=== PATIENT | male | born 1955 | race African-American/Black ===

== ENCOUNTER 2019-08-17 21:29 | Inpatient (IN) | payer OTHER ==
[~2019-08-17] VITALS: Ht 177.8 cm; Wt 88.0 kg
[2019-08-17] MEDS ORDERED: MAGNESIUM/ALUMINUM HYDROXIDE/SIMETHICONE 30ML UDC PO ONE (23:00)
[2019-08-17] MEDS ORDERED: NITROGLYCERIN 0.4MG TABLET SL SL PRN (23:00)
[2019-08-17] MEDS ORDERED: ASPIRIN 81MG TABLET PO ONE (23:00)
[2019-08-17] MEDS ORDERED: VISCOUS LIDOCAINE 2% 15 ML UDC PO ONE (23:00)
[2019-08-17 23:08] LABS: EOSINOPHILS % 1.4 % (0.0-5.0); HEMATOCRIT. 33.8 % (42.0-52.0); HEMOGLOBIN. 11.5 g/dL (14.0-18.0); LYMPHOCYTES % 29.8 % (20.0-50.0); MEAN CORPUSCULAR HEMOGLOBIN 29.4 pg (28.0-32.0); MEAN CORPUSCULAR VOLUME 86.8 fL (80.0-94.0); MEAN PLATELET VOLUME 7.1 fl (7.4-10.4); MONOCYTES % 8.3 % (2.0-8.0); NEUTROPHILS % 59.5 % (40.0-76.0); PLATELET 248 x1000/uL (130-400); RED CELL DISTRIBUTION WIDTH 14.3 % (11.6-14.6)
[2019-08-17 23:13] LABS: CHLORIDE 100 mEq/L (98-107)
[2019-08-18] VITALS (11 sets, daily range): BP systolic 112–144; BP diastolic 64–87
[2019-08-18] MEDS ORDERED: HYDR-3281 PO (03:05)
[2019-08-18] MEDS ORDERED: ASPI-986 MT (03:05)
[2019-08-18] MEDS ORDERED: NAPR220C61 MT (03:05)
[2019-08-18] MEDS ORDERED: BACL20TA PO (03:05)
[2019-08-18] MEDS: HYDROCODONE/ACETAMINOPHEN 5/325MG TABLET PO PRN (04:25)
[2019-08-18] MEDS: MORPHINE SULFATE 2 MG/ML CPJ (NOT FOR IM USE) IV PRN (06:05)
[2019-08-18] MEDS: ASPIRIN 81MG TABLET PO SCH (08:25)
[2019-08-18 09:16] LABS: BASOPHILS % 0.6 % (0.0-2.0); EOSINOPHILS % 1.7 % (0.0-5.0); HEMATOCRIT. 35.3 % (42.0-52.0); HEMOGLOBIN. 11.7 g/dL (14.0-18.0); LYMPHOCYTES % 29.8 % (20.0-50.0); MEAN CORPUSCULAR HEMOGLOBIN 29.1 pg (28.0-32.0); MEAN CORPUSCULAR VOLUME 87.6 fL (80.0-94.0); MEAN PLATELET VOLUME 7.2 fl (7.4-10.4); MONOCYTES % 5.7 % (2.0-8.0); NEUTROPHILS % 62.2 % (40.0-76.0); PLATELET 248 x1000/uL (130-400); RED BLOOD CELL COUNT 4.03 mill/uL (4.7-6.1); RED CELL DISTRIBUTION WIDTH 14.1 % (11.6-14.6)
[2019-08-18 09:20] LABS: CHLORIDE 98 mEq/L (98-107)
[2019-08-18 09:27] LABS: LDL CHOLESTEROL 74 mg/dL (5-100)
[2019-08-18 09:28] LABS: HDL CHOLESTEROL 64 mg/dL (40-59)
[2019-08-18 09:31] LABS: CREATINE KINASE MB FRACTION < 1.0 ng/mL (0.5-3.6)
[2019-08-18] MEDS ORDERED: IPRATROPIUM/ALBUTEROL 0.5-3(2.5)MG/3ML NEB HHN PRN (11:45)
[2019-08-18] MEDS ORDERED: LORAZEPAM 0.5MG TABLET PO PRN (11:45)
[2019-08-18] MEDS ORDERED: ONDANSETRON HCL 4MG/2ML INJ IV PRN (11:45)
[2019-08-18] MEDS ORDERED: DOCUSATE SODIUM 100MG CAPSULE PO PRN (11:45)
[2019-08-18] MEDS ORDERED: GUAIFENESIN 200MG/10ML SUGAR FREE UDC PO PRN (11:45)
[2019-08-18 12:26] LABS: *AMPHETAMINES SCREEN URINE NEGATIVE (NEGATIVE); *BARBITURATES SCREEN URINE NEGATIVE (NEGATIVE); *BENZODIAZEPINES SCREEN URINE NEGATIVE (NEGATIVE); *COCAINE SCREEN URINE NEGATIVE (NEGATIVE)
[2019-08-18 12:27] LABS: CANNABINOID URINE SCREEN NEGATIVE (NEGATIVE); METHADONE URINE SCREEN NEGATIVE (NEGATIVE); OPIATES URINE SCREEN PRESUMTIVE POSITIVE (NEGATIVE); PHENCYCLIDINE URINE SCREEN NEGATIVE (NEGATIVE)
[2019-08-18] MEDS ORDERED: BACLOFEN 10MG TABLET PO PRN (12:45)
[2019-08-19] VITALS (11 sets, daily range): BP systolic 96–139; BP diastolic 63–84
[2019-08-19] MEDS: MORPHINE SULFATE 2 MG/ML CPJ (NOT FOR IM USE) IV PRN ×2 (05:17→23:26)
[2019-08-19 08:16] LABS: BASOPHILS % 0.5 % (0.0-2.0); EOSINOPHILS % 1.4 % (0.0-5.0); HEMATOCRIT. 35.3 % (42.0-52.0); LYMPHOCYTES % 23.4 % (20.0-50.0); MEAN CORPUSCULAR HEMOGLOBIN 29.5 pg (28.0-32.0); MEAN PLATELET VOLUME 7.6 fl (7.4-10.4); MONOCYTES % 8.7 % (2.0-8.0); PLATELET 243 x1000/uL (130-400); RED BLOOD CELL COUNT 4.05 mill/uL (4.7-6.1); RED CELL DISTRIBUTION WIDTH 14.1 % (11.6-14.6)
[2019-08-19] MEDS: ASPIRIN 81MG TABLET PO SCH (08:21)
[2019-08-19 08:32] LABS: CHLORIDE 101 mEq/L (98-107)
[2019-08-19 08:41] LABS: TOTAL IRON BINDING CAPACITY 275 ug/dL (250-450)
[2019-08-19] MEDS ORDERED: ASPI-1158 MT (10:28)
[2019-08-19 12:51] LABS: FOLIC ACID (FOLATE) SERUM 14.1 ng/mL (>5.38)
[2019-08-19] MEDS ORDERED: SODIUM CHLORIDE 0.9% 1,000 ML IV ONE (13:36)
[2019-08-19] MEDS ORDERED: SODIUM CHLORIDE 0.9% 1000ML BAG (SEPSIS BOLUS) IV ONE (13:45)
[2019-08-19] MEDS ORDERED: SODIUM CHLORIDE 0.9% 1,000 ML IV SCH (13:45)
[2019-08-19] MEDS: PANTOPRAZOLE 40MG DR TABLET PO SCH (14:00)
[2019-08-19] MEDS: HYDROCODONE/ACETAMINOPHEN 5/325MG TABLET PO PRN (14:08)
[2019-08-19] MEDS: DEXAMETHASONE 4MG TABLET PO SCH ×2 (17:44→23:16)
[2019-08-19] MEDS ORDERED: IOHEXOL-300 100 ML BOTTLE ONE (18:24)
[2019-08-20] VITALS (47 sets, daily range): BP systolic 88–159; BP diastolic 51–96
[2019-08-20] MEDS: HYDROCODONE/ACETAMINOPHEN 5/325MG TABLET PO PRN (02:23)
[2019-08-20] MEDS: PANTOPRAZOLE 40MG DR TABLET PO SCH (06:00)
[2019-08-20] MEDS: DEXAMETHASONE 4MG TABLET PO SCH ×4 (06:00→23:54)
[2019-08-20 06:56] LABS: INR 1.3
[2019-08-20] MEDS: BICALUTAMIDE 50 MG TABLET PO SCH (08:20)
[2019-08-20 08:22] LABS: HEPATITIS B SURFACE ANTIGEN NEGATIVE
[2019-08-20 08:51] LABS: HEPATITIS A AB IGM NEGATIVE (NEGATIVE)
[2019-08-20 09:16] LABS: BG BASE EXCESS 0.2 mmol/L (-2.0-2.0); BG CARBOXYHEMOGLOBIN 0.4 % (0.5-1.5); BG FRACTION INSPIRED OXYGEN 21; BG HCO3 ACT 24.5 mmol/L (22.0-26.0); BG METHEMOGLOBIN 0.3 % (0.0-1.5); BG OXYHEMOGLOBIN 93.3 % (94.0-97.0); BG PCO2 38.8 mmHg (35.0-45.0); BG PH 7.419 (7.350-7.450); BG PO2 67.7 mmHg (75.0-100.0); BG SAMPLE SITE RIGHT BRACHIAL; BG TOTAL HEMOGLOBIN 12.3 g/dL (12.0-18.0); BG VENT MODE ROOM AIR
[2019-08-20] MEDS ORDERED: IPRATROPIUM/ALBUTEROL 0.5-3(2.5)MG/3ML NEB HHN PRN (10:00)
[2019-08-20] MEDS ORDERED: THROMBIN (BOVINE) 5000 UNITS/VIAL TOP ONE (10:42)
[2019-08-20] MEDS ORDERED: LIDOCAINE HCL/EPINEPHRINE 1%-EPI 1:100,000 20 ML VIAL ONE (10:43)
[2019-08-20] MEDS ORDERED: BACITRACIN 50,000 UNITS/VIAL ONE (10:43)
[2019-08-20] MEDS: DEXT 5%/LACTATED RINGERS 1,000 ML IV SCH ×2 (11:51→17:08)
[2019-08-20] MEDS ORDERED: PROPOFOL 200MG/20ML VIAL IV ONE (12:24)
[2019-08-20] MEDS ORDERED: FENTANYL CITRATE/PF 50MCG/ML 5ML VIAL ONE (12:24)
[2019-08-20] MEDS ORDERED: ROCURONIUM BROMIDE 10MG/ML VIAL 5ML IV ONE (12:24)
[2019-08-20] MEDS ORDERED: MIDAZOLAM HCL 2 MG/2 ML VIAL ONE (12:25)
[2019-08-20] MEDS ORDERED: MORPHINE SULFATE 4 MG/ML CPJ (NOT FOR IM USE) IV PRN (13:15)
[2019-08-20] MEDS ORDERED: SODIUM CHLORIDE 0.9% 1000ML BAG (SEPSIS BOLUS) IV ONE (13:45)
[2019-08-20] MEDS ORDERED: SODIUM CHLORIDE 0.9% 1,000 ML IV SCH (14:00)
[2019-08-20] MEDS ORDERED: CEFAZOLIN SODIUM 1000MG/VIAL IV SCH (14:00)
[2019-08-20] MEDS ORDERED: ESMOLOL HCL 10MG/ML 10ML VIAL IV ONE (14:03)
[2019-08-20] MEDS ORDERED: EPHEDRINE SULFATE 50MG/ML VIAL ONE (14:24)
[2019-08-20] MEDS ORDERED: GLYCOPYRROLATE 0.2 MG/ML 2ML VIAL ONE (15:19)
[2019-08-20] MEDS ORDERED: FENTANYL CITRATE/PF 50MCG/ML 2ML VIAL ONE (15:40)
[2019-08-20] MEDS ORDERED: DIPHENHYDRAMINE INJ IV PRN (16:15)
[2019-08-20] MEDS ORDERED: ONDANSETRON INJ IV PRN (16:15)
[2019-08-20] MEDS ORDERED: NALOXONE INJ IV PRN (16:15)
[2019-08-20] MEDS: HYDROMORPHONE PCA 10MG/50ML IV PRN (17:07)
[2019-08-20] MEDS: NICARDIPINE 100 MG in SODIUM CHLORIDE 0.9% 60 ML IV PRN (17:11)
[2019-08-20] MEDS: CEFAZOLIN 1000MG PREMIX 50 ML IV SCH (18:30)
[2019-08-21] VITALS (98 sets, daily range): BP systolic 47–167; BP diastolic 28–124
[2019-08-21] MEDS: CEFAZOLIN 1000MG PREMIX 50 ML IV SCH ×3 (01:27→17:23)
[2019-08-21 05:58] LABS: CHLORIDE 100 mEq/L (98-107)
[2019-08-21] MEDS: DEXT 5%/LACTATED RINGERS 1,000 ML IV SCH ×2 (06:00→15:37)
[2019-08-21 06:23] LABS: BASOPHILS % 0.3 % (0.0-2.0); HEMATOCRIT. 36.5 % (42.0-52.0); LYMPHOCYTES % 10.5 % (20.0-50.0); MEAN CORPUSCULAR HEMOGLOBIN 28.6 pg (28.0-32.0); MEAN CORPUSCULAR VOLUME 87.5 fL (80.0-94.0); MEAN PLATELET VOLUME 7.6 fl (7.4-10.4); MONOCYTES % 6.9 % (2.0-8.0); NEUTROPHILS % 82.3 % (40.0-76.0); PLATELET 301 x1000/uL (130-400); RED BLOOD CELL COUNT 4.18 mill/uL (4.7-6.1); RED CELL DISTRIBUTION WIDTH 13.9 % (11.6-14.6)
[2019-08-21] MEDS: DEXAMETHASONE 4MG TABLET PO SCH ×4 (07:02→23:31)
[2019-08-21 07:07] LABS: IMMUNOGLOBULIN A 267 mg/dL (61-437); IMMUNOGLOBULIN G 1452 mg/dL (603-1613); IMMUNOGLOBULIN M 116 mg/dL (20-172)
[2019-08-21] MEDS: FAMOTIDINE 20MG/2ML VIAL IV SCH ×2 (08:48→21:01)
[2019-08-21] MEDS: NICARDIPINE 100 MG in SODIUM CHLORIDE 0.9% 60 ML IV PRN (08:50)
[2019-08-21] MEDS: BICALUTAMIDE 50 MG TABLET PO SCH (11:12)
[2019-08-21] MEDS: LACTULOSE 20G/30ML UDC PO SCH ×3 (14:30→20:29)
[2019-08-21] MEDS: HYDROMORPHONE PCA 10MG/50ML IV PRN (15:27)
[2019-08-21] MEDS: DOCUSATE SODIUM 100MG CAPSULE PO SCH (17:24)
[2019-08-21] MEDS: POLYETHYLENE GLYCOL 3350 (17GM) 1 DOSE PACK PO SCH (20:29)
[2019-08-22] VITALS (72 sets, daily range): BP systolic 112–170; BP diastolic 28–118
[2019-08-22] MEDS: DEXT 5%/LACTATED RINGERS 1,000 ML IV SCH ×3 (05:15→21:45)
[2019-08-22 05:59] LABS: CHLORIDE 99 mEq/L (98-107)
[2019-08-22 06:08] LABS: BASOPHILS % 0.1 % (0.0-2.0); HEMATOCRIT. 31.2 % (42.0-52.0); HEMOGLOBIN. 10.4 g/dL (14.0-18.0); MEAN CORPUSCULAR HEMOGLOBIN 28.8 pg (28.0-32.0); MEAN CORPUSCULAR VOLUME 86.4 fL (80.0-94.0); MEAN PLATELET VOLUME 7.8 fl (7.4-10.4); NEUTROPHILS % 84.9 % (40.0-76.0); PLATELET 266 x1000/uL (130-400); RED CELL DISTRIBUTION WIDTH 13.6 % (11.6-14.6)
[2019-08-22] MEDS: DEXAMETHASONE 4MG TABLET PO SCH ×3 (06:14→18:04)
[2019-08-22] MEDS ORDERED: BISACODYL 10MG SUPP PR PRN (09:00)
[2019-08-22] MEDS: BICALUTAMIDE 50 MG TABLET PO SCH (09:28)
[2019-08-22] MEDS: FAMOTIDINE 20MG/2ML VIAL IV SCH ×2 (09:28→21:45)
[2019-08-22] MEDS: DOCUSATE SODIUM 100MG CAPSULE PO SCH ×2 (09:28→18:04)
[2019-08-22] MEDS: POLYETHYLENE GLYCOL 3350 (17GM) 1 DOSE PACK PO SCH (21:45)
[2019-08-22] MEDS: HYDROMORPHONE PCA 10MG/50ML IV PRN (22:34)
[2019-08-23] VITALS: BP 132/80
[2019-08-23] MEDS: DEXAMETHASONE 4MG TABLET PO SCH ×4 (00:17→18:19)
[2019-08-23 04:00] VITALS: BP 133/84
[2019-08-23] MEDS: DEXT 5%/LACTATED RINGERS 1,000 ML IV SCH ×2 (06:13→18:19)
[2019-08-23 07:28] LABS: HEMATOCRIT. 33.1 % (42.0-52.0); HEMOGLOBIN. 11.1 g/dL (14.0-18.0); LYMPHOCYTES % 8.4 % (20.0-50.0); MEAN CORPUSCULAR HEMOGLOBIN 29.1 pg (28.0-32.0); MEAN CORPUSCULAR VOLUME 86.8 fL (80.0-94.0); MEAN PLATELET VOLUME 7.7 fl (7.4-10.4); MONOCYTES % 7.7 % (2.0-8.0); NEUTROPHILS % 83.9 % (40.0-76.0); PLATELET 262 x1000/uL (130-400); RED BLOOD CELL COUNT 3.81 mill/uL (4.7-6.1); RED CELL DISTRIBUTION WIDTH 13.8 % (11.6-14.6)
[2019-08-23 07:50] LABS: CHLORIDE 98 mEq/L (98-107)
[2019-08-23 08:00] VITALS: BP 149/89
[2019-08-23] MEDS: DOCUSATE SODIUM 100MG CAPSULE PO SCH ×2 (08:47→17:00)
[2019-08-23] MEDS: FAMOTIDINE 20MG/2ML VIAL IV SCH ×2 (08:47→21:07)
[2019-08-23] MEDS: BICALUTAMIDE 50 MG TABLET PO SCH (09:12)
[2019-08-23] MEDS ORDERED: LACTULOSE 20G/30ML UDC PO STA (13:13)
[2019-08-23] MEDS ORDERED: BISACODYL 10MG SUPP PR PRN ×2 (13:15)
[2019-08-23] MEDS: LACTULOSE 20G/30ML UDC PO SCH ×3 (13:45→21:00)
[2019-08-23 16:00] VITALS: BP 146/91
[2019-08-23 20:00] VITALS: BP 143/83
[2019-08-23] MEDS: POLYETHYLENE GLYCOL 3350 (17GM) 1 DOSE PACK PO SCH (21:00)
[2019-08-24] VITALS: BP 148/95
[2019-08-24] MEDS: DEXAMETHASONE 4MG TABLET PO SCH ×3 (00:58→17:32)
[2019-08-24 04:00] VITALS: BP 145/90
[2019-08-24] MEDS: DEXT 5%/LACTATED RINGERS 1,000 ML IV SCH ×3 (04:09→22:53)
[2019-08-24 08:00] VITALS: BP 141/88
[2019-08-24] MEDS: LACTULOSE 20G/30ML UDC PO SCH (09:00)
[2019-08-24] MEDS: DOCUSATE SODIUM 100MG CAPSULE PO SCH ×2 (09:07→16:42)
[2019-08-24] MEDS: FAMOTIDINE 20MG/2ML VIAL IV SCH ×2 (09:07→20:34)
[2019-08-24] MEDS: BICALUTAMIDE 50 MG TABLET PO SCH (09:07)
[2019-08-24 12:00] VITALS: BP 140/81
[2019-08-24] MEDS ORDERED: BISACODYL 10MG SUPP PR SCH (12:00)
[2019-08-24 16:00] VITALS: BP 151/89
[2019-08-24] MEDS: HYDROMORPHONE PCA 10MG/50ML IV PRN (17:18)
[2019-08-25] VITALS: BP 138/80
[2019-08-25] MEDS: DEXAMETHASONE 4MG TABLET PO SCH (05:55)
[2019-08-25 08:00] VITALS: BP 145/81
[2019-08-25] MEDS: DOCUSATE SODIUM 100MG CAPSULE PO SCH ×2 (09:00→16:06)
[2019-08-25] MEDS: FAMOTIDINE 20MG/2ML VIAL IV SCH ×2 (09:21→21:17)
[2019-08-25] MEDS: BICALUTAMIDE 50 MG TABLET PO SCH (09:21)
[2019-08-25] MEDS: DEXT 5%/LACTATED RINGERS 1,000 ML IV SCH (10:17)
[2019-08-25 16:00] VITALS: BP 136/88
[2019-08-25 20:00] VITALS: BP 144/81
[2019-08-25] MEDS: HYDROCODONE/ACETAMINOPHEN 5/325MG TABLET PO PRN (21:37)
[2019-08-26] VITALS: BP 137/78
[2019-08-26 04:00] VITALS: BP 137/82
[2019-08-26 08:00] VITALS: BP 135/79
[2019-08-26] MEDS: BICALUTAMIDE 50 MG TABLET PO SCH (09:00)
[2019-08-26] MEDS: DOCUSATE SODIUM 100MG CAPSULE PO SCH ×2 (09:00→17:00)
[2019-08-26] MEDS: FAMOTIDINE 20MG/2ML VIAL IV SCH ×2 (10:27→22:45)
[2019-08-26] MEDS: HYDROCODONE/ACETAMINOPHEN 5/325MG TABLET PO PRN ×2 (10:37→18:06)
[2019-08-26 16:00] VITALS: BP 141/82
[2019-08-26 20:00] VITALS: BP 132/77
[2019-08-27] VITALS: BP 144/85
[2019-08-27] MEDS: HYDROCODONE/ACETAMINOPHEN 5/325MG TABLET PO PRN ×2 (00:43→09:10)
[2019-08-27 04:00] VITALS: BP 113/75
[2019-08-27 08:00] VITALS: BP 137/79
[2019-08-27] MEDS: DOCUSATE SODIUM 100MG CAPSULE PO SCH ×3 (09:00→17:00)
[2019-08-27] MEDS: FAMOTIDINE 20MG/2ML VIAL IV SCH (09:08)
[2019-08-27] MEDS: BICALUTAMIDE 50 MG TABLET PO SCH (09:10)
[2019-08-27 09:50] LABS: CHLORIDE 103 mEq/L (98-107)
[2019-08-27 11:01] LABS: BASOPHILS % 0.2 % (0.0-2.0); EOSINOPHILS % 0.7 % (0.0-5.0); HEMATOCRIT. 35.7 % (42.0-52.0); MEAN CORPUSCULAR HEMOGLOBIN 29.4 pg (28.0-32.0); MEAN CORPUSCULAR VOLUME 87.5 fL (80.0-94.0); MEAN PLATELET VOLUME 7.2 fl (7.4-10.4); MONOCYTES % 6.4 % (2.0-8.0); NEUTROPHILS % 72.7 % (40.0-76.0); PLATELET 217 x1000/uL (130-400); RED BLOOD CELL COUNT 4.07 mill/uL (4.7-6.1); RED CELL DISTRIBUTION WIDTH 14.1 % (11.6-14.6)
[2019-08-27 11:58] VITALS: BP 126/75
[2019-08-27] MEDS ORDERED: HYDR-3281 PO (15:50)
[2019-08-27] MEDS ORDERED: BACL20TA PO (15:50)
[2019-08-27 16:00] VITALS: BP 127/74
[2019-08-27] MEDS ORDERED: HYDR-4001 MT (16:46)
== END 2019-08-27 18:00 | disposition home health service (06) | DRG 321 ==
LOC: ER 21:29 → 3WST 08-18 00:36 → EDBEDREQTM 08-18 00:40 → EDBEDREQ 08-18 00:40 → EDBEDREQDT 08-18 00:40 → ENRESERV 08-18 01:15 → 5EST 08-20 12:55 → 8WST 08-22 18:45
PROVIDERS: ADMIT Internal Medicine; ATTEND Internal Medicine
PROC: 0RG20J1 Fusion of 2 or more Cervical Vertebral Joints with Synthetic Substitute, Posterior Approach, Posterior Column, Open Approach (ICD-10-PCS; principal; 2019-08-20)
PROC: 0RG2071 Fusion of 2 or more Cervical Vertebral Joints with Autologous Tissue Substitute, Posterior Approach, Posterior Column, Open Approach (ICD-10-PCS; 2019-08-20)
DX: M47.12 Other spondylosis with myelopathy, cervical region (principal); G82.50 Quadriplegia, unspecified; G95.89 Other specified diseases of spinal cord; C79.51 Secondary malignant neoplasm of bone; D68.59 Other primary thrombophilia; M48.04 Spinal stenosis, thoracic region; G95.20 Unspecified cord compression; I27.20 Pulmonary hypertension, unspecified; K59.2 Neurogenic bowel, not elsewhere classified; M84.48XA Pathological fracture, other site, initial encounter for fracture; C61 Malignant neoplasm of prostate; K74.60 Unspecified cirrhosis of liver; D64.9 Anemia, unspecified; J45.20 Mild intermittent asthma, uncomplicated; M54.5 Low back pain; J98.11 Atelectasis; M48.061 Spinal stenosis, lumbar region without neurogenic claudication; K56.41 Fecal impaction; M47.9 Spondylosis, unspecified; E11.9 Type 2 diabetes mellitus without complications; B18.2 Chronic viral hepatitis C; G89.4 Chronic pain syndrome; I10 Essential (primary) hypertension; M48.02 Spinal stenosis, cervical region; R13.10 Dysphagia, unspecified; R07.89 Other chest pain; Z82.49 Family history of ischemic heart disease and other diseases of the circulatory system; Z83.3 Family history of diabetes mellitus; Z85.46 Personal history of malignant neoplasm of prostate; Z87.891 Personal history of nicotine dependence; Z91.19 Patient's noncompliance with other medical treatment and regimen; Z79.899 Other long term (current) drug therapy; Z79.82 Long term (current) use of aspirin; M54.12 Radiculopathy, cervical region
CPT/HCPCS: 36415; 36600; 70551; 71045; 71260; 72040; 72141; 72146; 72148; 74177; 76000; 78306; 78582; 80048; 80053; 80061; 80305; 82375; 82553; 82607; 82728; 82746; 82784; 82805; 83036; 83540; 83550; 83735; 83880; 84153; 84484; 85025; 85379; 86334; 86705; 86709; 86803; 87340; 88304; 88311; 92610; 93005; 93306; 94640; 97116; 97162; 97166; 97530; 97535; 99285; A9503; A9558; C1713; J0690; J1170; J2250; J2270; J2704; J3010; J3490; J7050; J7121; J8540; L0172; Q9967; G0103; U0003-CS